=== PATIENT | female | born 1960 | race Caucasian/White ===

== ENCOUNTER 2016-11-29 18:02 | Emergency (ER) | payer BC ==
[2016-11-29 18:24] VITALS: BP 173/93
--- NOTE | 2016-11-29 18:29 | UC ---
Back Pain HPI - HPI Summary HPI Summary: 55 YEAR OLD FEMALE PRESENTS WITH COMPLAINS OF BACK PAIN. - History of Current Complaint Chief Complaint: UCBackPain Stated Complaint: BACK PAIN, AND CHILLS Time Seen by Provider: 11/29/16 18:28 Hx Obtained From: Patient Onset/Duration: Sudden Onset Timing: Constant Pain Scale Used: 0-10 Numeric - 7 Character: Sharp Aggravating: Movement Alleviating: Rest Associated Signs And Symptoms: Positive: Negative - Allergies/Home Medications Allergies/Adverse Reactions: Allergies Allergy/AdvReac Type Severity Reaction Status Date / Time Penicillins Allergy Severe YEAST Verified 11/29/16 18:24 INFECTION PMH/Surg Hx/FS Hx/Imm Hx Previously Healthy: Yes - Surgical History Surgical History: Yes Surgery Procedure, Year, and Place: APPENDECTOMY - Family History Known Family History: Positive: None - Social History Alcohol Use: Occasionally Substance Use Type: None Smoking Status (MU): Former Smoker When Did the Patient Quit Smoking/Using Tobacco: age 28 Review of Systems Constitutional: Negative Skin: Negative Eyes: Negative ENT: Negative Respiratory: Negative Cardiovascular: Negative Gastrointestinal: Negative Genitourinary: Dysuria, Urgency Motor: Negative Neurovascular: Negative Musculoskeletal: Other: Neurological: Negative Psychological: Negative All Other Systems Reviewed And Are Negative: Yes Physical Exam Triage Information Reviewed: Yes Vital Signs: Initial Vital Signs Temp 37.1 C 11/29/16 18:19 Pulse 69 11/29/16 18:19 Resp 18 11/29/16 18:19 BP 173/93 11/29/16 18:19 Pulse Ox 100 11/29/16 18:19 Eye Exam: Normal ENT Exam: Normal Dental Exam: Normal Neck exam: Normal Neck: Positive: 1 Respiratory Exam: Normal Cardiovascular Exam: Normal Abdomen Description: Positive: CVA Tenderness (R), CVA Tenderness (L) Musculoskeletal Exam: Normal Neurological Exam: Normal Psychological Exam: Normal Skin Exam: Normal Back Pain Course/Dx - Differential Dx/Diagnosis Provider Diagnoses: URINARY FREQUNECY. BACK PAIN. FEVER Discharge - Discharge Plan Condition: Stable Disposition: HOME Prescriptions: Fluconazole [Diflucan 150 MG (NF)] 150 mg PO ONCE #1 tab Sulfamethox/Trimethoprim DS* [Bactrim DS 800/160 TAB*] 1 tab PO BID #14 tab Patient Education Materials: Urinary Tract Infection in Women (ED), Acute Low Back Pain (ED) Referrals: Lupillo Sorenson MD [Primary Care Provider] -
[2016-11-29] MEDS ORDERED: Sulfamethox/Trimethoprim DS 800/160* TAB PO ONE (18:56)
[2016-11-29] MEDS ORDERED: Fluconazole 150 MG (NF) 150 MG TAB PO ONE (19:20)
--- NOTE | 2016-12-01 17:26 | UC ---
Progress - Progress Note Progress Note: please call pt to discomtinue abx - urine culture neg growth PCP f/u 12/01/16 0152
== END 2016-11-29 19:15 | disposition home or self-care (01) ==
LOC: UCEAST 18:02
DX: R35.0 Frequency of micturition (principal); M54.9 Dorsalgia, unspecified; R50.9 Fever, unspecified; Z88.0 Allergy status to penicillin; Z87.891 Personal history of nicotine dependence
CPT/HCPCS: 81003; 87086; 99212; A9270-GY; G0463

== ENCOUNTER 2019-07-16 09:58 | Observation (INO) ==
[2019-07-16] MEDS ORDERED: Metoprolol Tartrate 5 mg VIAL 5 ml VIAL (1 mg/ml) IV ONE (10:39)
[2019-07-16 10:51] LABS: ABS Basophils 0.1 10^3/ul (0-0.2); ABS Eosinophils 0.1 10^3/ul (0-0.6); ABS Lymphocytes 1.6 10^3/ul (1.0-4.8); ABS Monocytes 0.5 10^3/ul (0-0.8); Eosinophil % 1.2 %; Hematocrit 45 % (35-47); Hemoglobin 15.8 g/dL (12.0-16.0); Lymphocyte % 29.4 %; Mean Corpuscular HGB Conc 35 g/dL (31-36); Mean Corpuscular Hemoglobin 30 pg (27-31); Mean Corpuscular Volume 88 fL (80-97); Mean Platelet Volume 8.6 fL (7.4-10.4); Platelet Count 275 10^3/uL (150-450); Red Blood Count 5.19 10^6 /uL (3.70-4.87); Red Cell Distribution Width 14 % (10-15); White Blood Count 5.3 10^3/uL (3.5-10.8)
[2019-07-16 11:01] LABS: INR 1.04 (0.82-1.09)
[2019-07-16 11:13] LABS: Albumin 4.5 g/dL (3.2-5.2); Albumin/Globulin Ratio 1.6 (1-3); BUN/Creatinine Ratio 18.7 (8-20); Calcium 9.6 mg/dL (8.6-10.3); EGFR Non-African American 79.4 (>60); Globulin 2.9 g/dL (2-4); Potassium 3.4 mmol/L (3.5-5.0); Total Protein 7.4 g/dL (6.4-8.9)
[2019-07-16] MEDS ORDERED: Iohexol 350 (CONTRAST) 500 ML MDV IV ONE (11:20)
[2019-07-16] MEDS ORDERED: Ondansetron 4 mg VIAL 2 MG/ML 2 ml VIAL IV PRN (14:32)
[2019-07-16] MEDS ORDERED: Nitroglycerin 0.4 mg/hr PATCH (10 mg) TRANSDERM ONE (14:42)
[2019-07-16] MEDS ORDERED: Heparin DRIP 25,000 UNITS(*) 25,000 UNITS/500 ML BAG IV SCH (14:45)
[2019-07-16] MEDS ORDERED: Heparin 5000 UNITS/ML VIAL(*) 1 ml vial IV SCH (15:00)
[2019-07-16] MEDS ORDERED: Heparin 5000 UNITS/ML VIAL(*) 1 ml vial IV PRN (15:00)
[2019-07-16] MEDS ORDERED: hydrALAZINE 20 mg/ml 1 ML Vial IV IV SLOW PU PRN (15:12)
[2019-07-16] MEDS: KCL 20 MEQ/100 ML IVPREMIX 20 MEQ/100 ML BAG IV SCH ×2 (17:22→22:13)
[2019-07-16] MEDS ORDERED: Potassium Chlor 20 meq TAB.ER PO ONE (19:35)
[2019-07-16 19:45] LABS: ABS Basophils 0.1 10^3/ul (0-0.2); ABS Eosinophils 0.1 10^3/ul (0-0.6); ABS Lymphocytes 3.2 10^3/ul (1.0-4.8); ABS Monocytes 0.6 10^3/ul (0-0.8); Eosinophil % 1.9 %; Hematocrit 42 % (35-47); Hemoglobin 14.6 g/dL (12.0-16.0); Lymphocyte % 40.7 %; Mean Corpuscular HGB Conc 35 g/dL (31-36); Mean Corpuscular Hemoglobin 31 pg (27-31); Mean Corpuscular Volume 87 fL (80-97); Mean Platelet Volume 8.4 fL (7.4-10.4); Nucleated Red Blood Cells % 0.1; Platelet Count 282 10^3/uL (150-450); Red Blood Count 4.78 10^6 /uL (3.70-4.87); Red Cell Distribution Width 14 % (10-15); White Blood Count 7.8 10^3/uL (3.5-10.8)
[2019-07-16 20:00] LABS: Calcium 9.3 mg/dL (8.6-10.3); EGFR Non-African American 79.4 (>60); Potassium 3.3 mmol/L (3.5-5.0)
[2019-07-16] MEDS ORDERED: Nitro Patch/OINT Remove PATCH PATCH OFF ONE (21:00)
[2019-07-17 07:11] LABS: Albumin/Globulin Ratio 1.5 (1-3); BUN/Creatinine Ratio 17.1 (8-20); Calcium 9.3 mg/dL (8.6-10.3); EGFR Non-African American 85.9 (>60); Globulin 2.6 g/dL (2-4); HDL Cholesterol 50.7 mg/dL; Potassium 3.8 mmol/L (3.5-5.0); Total Bilirubin 2.4 mg/dL (0.2-1.0); Total Protein 6.6 g/dL (6.4-8.9)
[2019-07-17 07:26] LABS: TSH (Thyroid Stimulating Horm) 1.2 mcIU/mL (0.34-5.60)
[2019-07-17] MEDS ORDERED: NS 0.9% 1000 ml BAG 1,000 ML IV SCH (08:30)
[2019-07-17 11:17] VITALS: BP 134/71
== END 2019-07-17 13:45 | disposition home or self-care (01) ==
LOC: ED 09:58 → INTOOBSV 15:04 → MED 15:04
PROVIDERS: ADMIT Internal Medicine; ATTEND Family Medicine